=== PATIENT | male | born 1965 | race Caucasian/White ===

== ENCOUNTER → 2019-10-01 | Outpatient (CLI) | payer OTHER | END | disposition home or self-care (01) | LOC: CVU 07:31 | PROVIDERS: ATTEND Orthopaedic Surgery | DX: I08.1 Rheumatic disorders of both mitral and tricuspid valves (principal); I48.91 Unspecified atrial fibrillation; I25.9 Chronic ischemic heart disease, unspecified | CPT/HCPCS: 93005; 93306 ==

== ENCOUNTER → 2021-03-12 | Outpatient (CLI) | payer OTHER | END | disposition home or self-care (01) | LOC: RAD 08:15 | PROVIDERS: ATTEND Chiropractor | DX: M25.551 Pain in right hip (principal); M25.552 Pain in left hip; Z96.643 Presence of artificial hip joint, bilateral | CPT/HCPCS: 73523 ==